=== PATIENT | female | born 1955 | race Caucasian/White ===

== ENCOUNTER → 2016-11-16 | Outpatient (CLI) | payer OTHER ==
[2015-02-13 18:00] VITALS: BP 150/90
--- NOTE | 2016-11-16 16:09 | KCIC ---
CHEST PA LATERAL History: . Chronic cough and shortness of breath for one year. Comparison: November 16, 2016. Note that a report from that exam is not available. Findings: Hyperexpansion of both lungs compatible with emphysema. The aorta is tortuous. Cardiac silhouette not enlarged. No evidence of pneumothorax. No focal airspace consolidation. Mild granulomatous calcifications are noted. The posterior costophrenic angles are poorly defined on lateral view but no definite or large pleural effusion. Ill-defined nodular opacities in both lung bases appear centered within the breast shadows and likely represent nipples. IMPRESSION: 1. Lung hyperexpansion, compatible with emphysema. 2. No evidence of active airspace consolidation. Electronically signed by: Bernardo Oneil MD (11/16/2016 4:05 PM)
== END | disposition home or self-care (01) ==
LOC: KCIC 14:45
PROVIDERS: ATTEND Internal Medicine Pulmonary Disease
DX: J44.9 Chronic obstructive pulmonary disease, unspecified (principal)
CPT/HCPCS: 71020

== ENCOUNTER → 2017-05-04 | Outpatient (CLI) | payer OTHER ==
[2015-02-13 18:00] VITALS: BP 150/90
--- NOTE | 2017-05-05 16:30 | SLEEP ---
DATE OF STUDY: 05/04/2017 ATTENDING PHYSICIAN: Dr. Ackerman. REFERRING PHYSICIAN: Dr. Moreno. The patient is 61 years old who weighs 99 pounds with a BMI of 18. The patient's [place] score was 6. Sleep study was performed at [facility]. During the night study, the patient spent 429 minutes in bed and slept for 398 minutes with a sleep efficiency of 93%. Sleep latency was 20 minutes with a REM latency of 183 minutes. Overall, sleep architecture showed normal stage 1 sleep, slightly increased stage 2 sleep, normal slow wave and normal REM sleep. During the night study, the patient had 3 obstructive apneas, 29 mixed apneas, no central apneas and 72 hypopneas. The patient's apnea hypopnea index was 16 per hour. Supine index 21 per hour and a REM index of 65 per hour. EKG monitoring revealed average heart rate of 77 beats per minute, no sustained arrhythmias were observed. PLMS were seen at index of only 1 per hour. Review of nocturnal oximetry study revealed a mean oxygen saturation 90%, with the lowest of 77. 95% of time oxygen saturation remained between 80% and 89%. Due to low AHI, the patient did not meet the split night criteria for CPAP initiation. IMPRESSION: 1. Moderate sleep apnea-hypopnea syndrome with worsening during REM sleep. Total AHI 16 per hour. REM AHI 65 per hour. 2. Nocturnal hypoxia secondary to obstructive sleep apnea. 3. No clinically significant PLMS. RECOMMENDATIONS: 1. The patient should return to the sleep lab for CPAP titration. 2. Alternate treatment option includes oral appliance. 3. If the patient undergoes CPAP titration, then she should be followed up in 4-6 weeks to assess compliance with CPAP and to document clinical improvement. 4. Avoid [employer] depressants. 5. Caution regarding driving until symptoms of sleep apnea resolve with the above recommendations. JANICE WHITTINGTON MD DR: ZOË/jay jay JOB#: [id number] / [id number] ABY Guzman MD, SABATO MD
== END | disposition home or self-care (01) ==
LOC: SLPLAB 18:36
PROVIDERS: ATTEND Internal Medicine Pulmonary Disease
DX: G47.33 Obstructive sleep apnea (adult) (pediatric) (principal)
CPT/HCPCS: 95810

== ENCOUNTER → 2017-05-19 | Outpatient (CLI) | payer OTHER ==
[2015-02-13 18:00] VITALS: BP 150/90
--- NOTE | 2017-05-20 13:45 | SLEEP ---
DATE OF STUDY: 05/19/2017 REFERRING PHYSICIAN: Dr. Moreno. ATTENDING PHYSICIAN: Dr. Ackerman. The patient is 61-year-old who weighs 99 pounds with a BMI of 18. The patient's Story score was 6. The patient had a previous sleep study on 05/04/2017 and was found to have moderate JAMIE with worsening during REM sleep. Total AHI was 16 per hour with a REM AHI of 65 per hour. The patient returned to the sleep lab for CPAP titration. During the night study, the patient spent 410 minutes in bed and slept for 305 minutes. Sleep latency was 29 minutes with a REM latency of 269 minutes. Sleep efficiency was 74%. Sleep architecture showed normal stage I and stage II sleep, increased slow wave and slightly reduced REM sleep. The patient was started on CPAP at 5 cm water and titrated up to 9 cm water. At the final pressure, the patient slept for 99 minutes. The patient had supine sleep throughout and also intermittent REM periods were observed. The patient's AHI was reduced to 0 per hour and oxygen saturation remained above 88%. The patient used a small size full face mask. EKG monitoring revealed normal sinus rhythm. No sustained arrhythmias were observed. Mean heart rate was 58 beats per minute. PLMs were seen at index of 1 per hour and none caused EEG arousals. IMPRESSION: 1. Moderate sleep apnea with worsening during REM sleep, diagnosed on previous sleep study. 2. No clinically significant periodic limb movements. RECOMMENDATIONS: 1. CPAP at 9 cm water completely eliminated the patient's sleep apnea and should be used on a nightly basis. 2. Follow up in 4-6 weeks to assess compliance with CPAP and to document clinical improvement. 3. Avoid [employer] depressants. 4. Caution regarding driving until symptoms of sleep apnea resolve with CPAP. JANICE WHITTINGTON MD DR: ZOË/jay jay JOB#: [id number] / [id number] ABY Guzman MD, SABATO MD
== END | disposition home or self-care (01) ==
LOC: RT 18:37
PROVIDERS: ATTEND Internal Medicine Pulmonary Disease
DX: G47.33 Obstructive sleep apnea (adult) (pediatric) (principal)
CPT/HCPCS: 95811